=== PATIENT | female | born 1970 | race Hispanic/Latino ===

== ENCOUNTER 2018-10-25 15:59 | Emergency (ER) | payer OTHER ==
[~2018-10-25] VITALS: Ht 170.2 cm; Wt 104.3 kg
[~2018-10-25 15:59] MED LIST: SYNTHROID75 MCG PO
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
== END 2018-10-25 18:36 | disposition home or self-care (01) ==
LOC: ER 15:59
DX: S00.83XA Contusion of other part of head, initial encounter (principal); M54.2 Cervicalgia; V43.52XA Car driver injured in collision with other type car in traffic accident, initial encounter; Y92.488 Other paved roadways as the place of occurrence of the external cause; E03.9 Hypothyroidism, unspecified
CPT/HCPCS: 70450; 72125; 99284

== ENCOUNTER 2019-06-19 07:18 | Emergency (ER) | payer OTHER ==
[~2019-06-19] VITALS: Ht 170.2 cm; Wt 77.1 kg
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
[2019-06-19] MEDS ORDERED: SODIUM CHLORIDE 0.9% 1000ML 1,000 ML IV STA (07:35)
[2019-06-19] MEDS ORDERED: MECLIZINE HCL 12.5 MG TAB PO ONE (08:00)
[2019-06-19 08:15] LABS: BASOPHILS % 0.9 % (0.0-1.0); EOSINOPHILS # (AUTO) 0.2 (0.0-0.4); EOSINOPHILS % 4.1 % (0.0-6.0); HEMATOCRIT 41.2 % (34.2-44.1); HEMOGLOBIN 13.8 g/dL (12.0-16.0); LYMPHOCYTES # (AUTO) 1.7 (1.0-3.2); LYMPHOCYTES % 37.7 % (18.0-39.1); MEAN CORPUSCULAR HEMOGLOBIN 29.2 pg (28-32); MEAN CORPUSCULAR HGB CONC 33.5 g/dL (31-35); MEAN CORPUSCULAR VOLUME 87.1 fL (81-99); MONOCYTES # (AUTO) 0.4 (0.2-0.8); MONOCYTES % 8.7 % (4.4-11.3); NEUTROPHILS # (AUTO) 2.1 (2.1-6.9); NEUTROPHILS % 48.4 % (38.7-80.0); PLATELET COUNT 223 x10e3/uL (140-360); RED BLOOD COUNT 4.73 x10e6/uL (3.6-5.1); RED CELL DISTRIBUTION WIDTH 12.2 % (11.7-14.4)
[2019-06-19 08:19] LABS: BILIRUBIN,URINE NEGATIVE (NEGATIVE); CLARITY,URINE SL CLOUDY (CLEAR); COLOR,URINE YELLOW (YELLOW); KETONES,URINE NEGATIVE (NEGATIVE); LEUKOCYTE ESTERASE ,URINE SMALL (NEGATIVE); NITRITE,URINE NEGATIVE (NEGATIVE); PROTEIN,URINE DIPSTICK NEGATIVE (NEGATIVE); URINE UROBILINOGEN 0.2 mg/dL (0.2 - 1)
[2019-06-19 08:26] LABS: INR 0.86; PROTHROMBIN TIME 12.2 seconds (11.9-14.5)
[2019-06-19] MEDS ORDERED: ONDANSETRON HCL INJ 2MG/ML 2ML 2 MG/ML VIAL IV ONE (08:30)
[2019-06-19 08:37] LABS: ALANINE AMINOTRANSFERASE 20 IU/L (0-55); ALBUMIN/GLOBULIN RATIO 1.3 (0.8-2.0); ALKALINE PHOSPHATASE 37 IU/L (40-150); ANION GAP 10.8 mmol/L (8-16); BACTERIA,URINE FEW /HPF; BLOOD UREA NITROGEN 16 mg/dL (7-26); BUN/CREATININE RATIO 19 (6-25); CALCIUM 9.9 mg/dL (8.4-10.2); CARBON DIOXIDE 29 mmol/L (22-29); CHLORIDE 103 mmol/L (98-107); CREATINE KINASE 40 IU/L (29-168); CREATININE, SERUM 0.83 mg/dL (0.57-1.11); EPITHELIAL CELLS,URINE RARE /LPF; EST GLOMERULAR FILTRATION RATE > 60 ML/MIN (60-); GLUCOSE 90 mg/dL (74-118); MAGNESIUM 1.8 MG/DL (1.3-2.1); POTASSIUM 3.8 mmol/L (3.5-5.1); RBC,URINE 0-5 /HPF (0-5); SODIUM 139 mmol/L (136-145)
--- NOTE | 2019-06-19 08:51 | Diagnostic Imaging Report ---
EXAMINATION: CHEST SINGLE (PORTABLE) INDICATION: Dizziness COMPARISON: None FINDINGS: LINES/TUBES:None LUNGS:The lungs are well-inflated. No focal consolidation or pulmonary edema. PLEURA:No pleural effusion or pneumothorax. MEDIASTINUM:The cardiomediastinal silhouette appears normal in size and shape. BONES/SOFT TISSUES:No acute osseous injury. ABDOMEN:No free air under the diaphragm. IMPRESSION: No focal pneumonia or pulmonary edema. Signed by: Reyna Johnson MD on 06/19/2019 8:48 AM
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
[2019-06-19 08:56] LABS: THYROID STIMULATING HORMONE 0.312 uIU/mL (0.350-4.940)
[2019-06-19 09:30] VITALS: BP 96/69
== END 2019-06-19 09:46 | disposition home or self-care (01) ==
LOC: ER 07:18
DX: R42 Dizziness and giddiness (principal); N30.90 Cystitis, unspecified without hematuria; E03.9 Hypothyroidism, unspecified
CPT/HCPCS: 36415; 70450; 71045; 80053; 81001; 82550; 82553; 83735; 84443; 84484; 85025; 85610; 85730; 93005; 99284; J2405; J7030; J8597